=== PATIENT | female | born 1940 | race Caucasian/White ===

== ENCOUNTER 2017-03-26 06:26 | Day surgery (SDC) | payer OTHER ==
--- NOTE | ~2017-03-26 | OP ---
Record Of Operation [facility] [address] [place]. [address] NAME: CR PURCELL : 44 STATUS : [facility]#: [id number] AGE: 76 ADM/REG DATE : 03/26/17 MR#: [id number] REPORT SERV DATE: 03/27/17 DICTATED BY: HA BURNHAM DATE: 03/26/17 REPORT STATUS : Draft TRANSCRIBED BY: MODYu DATE: 03/26/17 DATE OF PROCEDURE: PREOPERATIVE DIAGNOSIS: Deep arteriovenous fistula. POSTOPERATIVE DIAGNOSIS: Deep arteriovenous fistula. PROCEDURE: Elevation of the left upper extremity AV fistula. SURGEON: Ha Burnham M.D. CAMPUS AIDE: Alfie Gimenez. ANESTHESIA: Block. INDICATION: The patient is a 76-year-old female with a history of morbid obesity, who has end-stage renal disease. I performed a brachiocephalic fistula and they have had some difficulty accessing it. I performed a fistulogram that demonstrated no issues, but the fistula is rather deep. Thus, she was consented for revision of this fistula. DESCRIPTION OF PROCEDURE: After informed consent was obtained, the patient was taken to the operating room and placed in the supine position on the operating table. A block had previously been administered. The patient's left upper extremity was prepped and draped in usual sterile fashion. I marked the course of the fistula with an ultrasound. I created a longitudinal skin incision. I used cautery to deepen the incision. I dissected out the fistula. I ligated and divided several branches, including one larger branch closer to the antecubital fossa. I closed the subcutaneous tissue underneath the fistula and then reapproximated the skin in layers. The patient tolerated the procedure well without any intraprocedural complications noted. ANATOMIC PATHOLOGIST/ALONSO Ha Burnham M.D. / [id number] CC: Aldo Wade M.D. Nathan Chamberlain, M.D.
[~2017-03-26 06:26] MED LIST: ANTIDEPRESSANT PO; APRES25 PO; ASAB PO; CARDU2 PO; CAT2 PO; CELEXA20 PO; CLONAZEPAM PO; HUMALOG SC; IRON TAB PO; KLONO1 PO; LANTUS SC; LANTUSCART SC; LEVOTHYROXIN125 MCG PO; LIPITOR40 PO; NOVOPEN SC; SYNTHROID137 MCG PO; TOPXL50 PO; ULTRAM50 PO; ZOLOFT PO
[2017-03-26 07:00] LABS: HEMATOCRIT 39.6 % (36.0-48.0); HEMOGLOBIN 12.5 g/dL (12.0-16.0)
[2017-03-26 07:12] LABS: BUN (BLOOD UREA NITROGEN) 34 MG/DL (6-23); CALCIUM, SERUM 8.6 MG/DL (8.5-10.4); CHLORIDE, SERUM 106 MMOL/L (96-112); CO2 (CARBON DIOXIDE) 32 MMOL/L (24-34); CREATININE 3.89 MG/DL (0.55-1.02); GFR AFRICAN AMERICAN 12 ML/MIN (>=60); GFR NON AFRICAN AMERICAN 11 ML/MIN (>=60); GLUCOSE, SERUM 79 MG/DL (60-99); POTASSIUM, SERUM 3.9 MMOL/L (3.5-5.3); SODIUM, SERUM 145 MMOL/L (135-148)
== END 2017-03-26 17:26 | disposition home or self-care (01) ==
LOC: SDC 06:26
PROVIDERS: Surgery
PROC: 05SC0ZZ Reposition Left Basilic Vein, Open Approach (ICD-10-PCS; 2017-03-26)
PROC: 05SF0ZZ Reposition Left Cephalic Vein, Open Approach (ICD-10-PCS; principal; 2017-03-26 09:30)
DX: T82.898A Other specified complication of vascular prosthetic devices, implants and grafts, initial encounter (principal); I12.0 Hypertensive chronic kidney disease with stage 5 chronic kidney disease or end stage renal disease; E11.22 Type 2 diabetes mellitus with diabetic chronic kidney disease; N18.6 End stage renal disease; Z99.2 Dependence on renal dialysis; E66.01 Morbid (severe) obesity due to excess calories; Z68.29 Body mass index [BMI] 29.0-29.9, adult; E03.9 Hypothyroidism, unspecified; E78.00 Pure hypercholesterolemia, unspecified; D64.9 Anemia, unspecified; L30.9 Dermatitis, unspecified; F41.9 Anxiety disorder, unspecified; F32.9 Major depressive disorder, single episode, unspecified; Z98.51 Tubal ligation status; Z90.710 Acquired absence of both cervix and uterus; Z88.5 Allergy status to narcotic agent; Z79.82 Long term (current) use of aspirin; Z79.4 Long term (current) use of insulin; Z79.899 Other long term (current) drug therapy; Z98.890 Other specified postprocedural states
CPT/HCPCS: 80048; 82962; 85014; 85018; 93005; J0690; J2250; J2795; J3010